=== PATIENT | female | born 1995 | race Two or more races ===

== ENCOUNTER 2019-10-09 09:30 | Inpatient (IN) | payer OTHER ==
[2019-10-09] MEDS ORDERED: AMPICILLIN SODIUM 2 GM VIAL ONE (10:57)
[2019-10-09] MEDS: DEXTROSE 5%-LACTATED RINGERS 1,000 ML IV SCH (11:00)
[2019-10-09 11:14] LABS: BASO % 0.4 % (0-2.0); EOS % 0.1 % (0-4.5); HEMATOCRIT 36.4 % (32.4-45.2); HEMOGLOBIN 12.1 GM/dL (10.7-15.3); LYMPH % 6.5 % (8-40); MCH 28.7 pg (25.7-33.7); MCHC 33.2 g/dl (32.0-36.0); MEAN CELL VOLUME 86.4 fl (80-96); MEAN PLT VOLUME 9.3 fl (7.5-11.1); PLATELET COUNT 306 K/MM3 (134-434); RBC 4.21 M/mm3 (3.60-5.2); RDW 14.7 % (11.6-15.6); WHITE BLOOD COUNT 15.9 K/mm3 (4.0-10.0)
[2019-10-09] MEDS ORDERED: OXYTOCIN 30 UNITS in 0.9% NS 30 UNIT/500 ML INFUS.BAG IVPB ONE (11:19)
--- NOTE | 2019-10-09 11:28 | HP ---
Past Medical History - Primary Care Physician PCP:: Israel Gupta - Admission Chief Complaint: 39 weeks , labor History of Present Illness: 24 yo f edc by sono 10/14/19 39 weeks, care at [place] [place] , no chart available , cx 2 cm 80 vx -2 mi, fhr cat1 , irregular contraction History Source: Patient Limitations to Obtaining History: No Limitations - Past Medical History Pulmonary: Yes: Asthma (no recent attack) ...: 1 ...EDC by Sono: 10/14/19 - Past Surgical History Hx Myomectomy: No Hx Transabdominal Cerclage: No - Smoking History Smoking history: Never smoked Have you smoked in the past 12 months: No - Alcohol/Substance Use Hx Alcohol Use: No - Social History History of Recent Travel: No Home Medications - Allergies Allergies/Adverse Reactions: Allergies Allergy/AdvReac Type Severity Reaction Status Date / Time No Known Allergies Allergy Verified 10/09/19 10:45 - Home Medications Home Medications: Ambulatory Orders Tablet 1 tablet PO DAILY 10/09/19 Review of Systems - Review of Systems Constitutional: reports: No Symptoms Eyes: reports: No Symptoms HENT: reports: No Symptoms Neck: reports: No Symptoms Cardiovascular: reports: No Symptoms Respiratory: reports: No Symptoms Gastrointestinal: reports: No Symptoms Genitourinary: reports: No Symptoms Breasts: reports: No Symptoms Reported Musculoskeletal: reports: No Symptoms Integumentary: reports: No Symptoms Neurological: reports: No Symptoms Endocrine: reports: No Symptoms Hematology/Lymphatic: reports: No Symptoms Psychiatric: reports: No Symptoms Physical Exam - Maternity Vital Signs: Vital Signs Temperature 98.5 F 10/09/19 10:34 Pulse Rate 89 10/09/19 11:00 Respiratory Rate 18 10/09/19 11:00 Blood Pressure 125/79 10/09/19 11:00 O2 Sat by Pulse Oximetry (%) Constitutional: Yes: Well Nourished, No Distress, Calm Eyes: Yes: WNL, Conjunctiva Clear, EOM Intact HENT: Yes: WNL, Atraumatic, Normocephalic Neck: Yes: WNL, Supple, Trachea Midline Cardiovascular: Yes: WNL, Regular Rate and Rhythm Breast(s): Yes: WNL - Abdominal Exam/OB Fundal Height: 38 Number of Fetuses: Single Presentation: Vertex Contractions: Yes Regularity: Irregular Intensity: Moderate Monitor Mode: External Heart Rate Location: [facility] Category: I Accelerations: Non-Uniform Decelerations: None - Vaginal Exam/OB Vaginal Bleediing: No Speculum Exam: No Dilatation (cm): 2 cm Effacement (%): 80 Amniotic Membrane Status: Intact Presentation: Vertex/Position Station: -2 - Physical Exam Musculoskeletal: Yes: WNL Extremities: Yes: WNL Edema: LLE: Trace, RLE: Trace Deep Tendon Reflex Grade: Normal +2 Psychiatric: Yes: WNL - Labs Lab Results: CBC, BMP 10/09/19 10:10 Hemorrhage Risk Assessment - Risk Factors Medium Risk Factors: Yes: None High Risk Factors: Yes: None Risk Score: 1 Risk Level: Medium Risk Problem List - Problems (1) with 39 completed weeks gestation Code(s): Z3A.39 - 39 WEEKS GESTATION OF (2) Labor established Code(s): EQS2425 - (3) with care elsewhere Code(s): Z34.90 - ENCNTR FOR SUPRVSN OF NORMAL , UNSP, UNSP TRIMESTER Qualifiers: Trimester: third trimester Qualified Code(s): Z34.93 - Encounter for supervision of normal , unspecified, third trimester Assessment/Plan admit, FHM pain management GBS unknown plan in Amp. try to obtain record
[2019-10-09 11:31] LABS: INR 1.04 (0.83-1.09); PROTHROMBIN TIME (PATIENT) 12.3 SEC (9.7-13.0)
[2019-10-09 11:34] LABS: ACTIVATED PTT 31.5 SECONDS (25.2-36.5)
[2019-10-09] MEDS ORDERED: AMPICILLIN - 2 GM in SODIUM CHLORIDE 100 ML IVPB ONE (11:34)
[2019-10-09 11:45] LABS: BLOOD UREA NITROGEN 10.3 mg/dL (7-18); CALCIUM 8.9 mg/dL (8.5-10.1); CREATININE 0.8 mg/dL (0.55-1.3); POTASSIUM 4.1 mmol/L (3.5-5.1)
[2019-10-09] MEDS ORDERED: BUTORPHANOL TARTRATE 1 MG/ML VIAL IVPUSH PRN (12:03)
[2019-10-09] MEDS ORDERED: PROMETHAZINE HCL 25 MG/1 ML VIAL IVPUSH ONE (12:03)
[2019-10-09 12:40] LABS: COCAINE, UR NEGATIVE ng/ml (CUTOFF=300); METHADONE, UR NEGATIVE ng/ml (CUTOFF=300); OPIATES, URI NEGATIVE ng/ml (CUTOFF=300); PHENCYCLIDINE,URINE NEGATIVE ng/ml (CUTOFF=25); URINE AMPHETAMINES NEGATIVE ng/ml (CUTOFF=500); URINE BARBITURATES NEGATIVE ng/ml (CUTOFF=200); URINE BENZODIAZEPINES NEGATIVE ng/ml (CUTOFF=200)
[2019-10-09] MEDS: AMPICILLIN - 1 GM in SODIUM CHLORIDE 100 ML IVPB SCH ×3 (15:00→23:00)
[2019-10-09] MEDS ORDERED: AMPICILLIN SODIUM 1 GM VIAL ONE ×2 (15:27→23:16)
[2019-10-09] MEDS: OXYTOCIN 30 UNITS in 0.9% NS 30 UNIT/500 ML INFUS.BAG IVPB SCH (17:00)
[2019-10-09] MEDS ORDERED: BUTORPHANOL TARTRATE 1 MG/ML VIAL ONE ×2 (18:30)
[2019-10-09] MEDS ORDERED: PROMETHAZINE HCL 25 MG/1 ML VIAL ONE (18:30)
[2019-10-10] MEDS ORDERED: FENTANYL/BUPIVACAINE/NS/PF - PCEA - 50 ML DISP.SYRIN EP ONE (00:09)
[2019-10-10] MEDS ORDERED: NALOXONE HCL 0.4 MG/ML VIAL IVPUSH PRN (00:12)
[2019-10-10] MEDS: FENTANYL/BUPIVACAINE/NS/PF - PCEA - 50 ML DISP.SYRIN EP SCH (00:25)
[2019-10-10] MEDS: AMPICILLIN - 1 GM in SODIUM CHLORIDE 100 ML IVPB SCH ×2 (03:00→09:22)
[2019-10-10] MEDS ORDERED: OXYTOCIN 20 UNITS in 0.9% NS 20 UNIT/1,000 ML INFUS.BAG IV ONE (03:54)
[2019-10-10] MEDS ORDERED: AMPICILLIN SODIUM 1 GM VIAL ONE (04:04)
[2019-10-10] MEDS ORDERED: BENZOCAINE 28 GM HEMORRHOIDAL OINTMENT TP PRN (04:47)
[2019-10-10] MEDS ORDERED: BENZOCAINE 20% 57 GM BOTTLE TP PRN (04:47)
[2019-10-10] MEDS ORDERED: METHYLERGONOVINE MALEATE 0.2 MG/1 ML AMP IM PRN (04:47)
[2019-10-10] MEDS ORDERED: WITCH HAZEL 50% (TUCKS) 40 PAD/JAR PAD TP PRN (04:47)
[2019-10-10] MEDS ORDERED: BISACODYL 10 MG SUPP.RECT RC PRN (04:47)
--- NOTE | 2019-10-10 04:52 | PN ---
Delivery - Delivery Vaginal Delivery: Spontaneous Type of Anesthesia: Local, Epidural Episiotomy/Laceration: Periurethral Extnsion/lac (cx full, head on pernium, head delivered , naso pharynx suctioned , ant .and post. shoulder with no difficulty , live baby boy 9/9 . placenta complete . Rt periurethral laceration repaired with 2 two chromic interrupted suture , ebl 300 cc , no complication, baby bonded with mom) Delivery, Single - [place] Feeding Plan Initial Plan: Elected not to breastfeed exclusively throughout hospitalization
[2019-10-10] MEDS ORDERED: D5W-LR W/ 20 UNITS OXYTOCIN 20 UNIT/1,000 ML INFUS.BAG IV SCH (05:00)
[2019-10-10] MEDS ORDERED: ACETAMINOPHEN 325 MG TABLET (FP) ONE (09:34)
[2019-10-10] MEDS: ACETAMINOPHEN 325 MG TABLET (FP) PO PRN ×2 (09:55→22:18)
[2019-10-10] MEDS: PRENATAL VITAMINS W/ FOLIC ACID TABLET (FP) PO SCH (09:55)
[2019-10-10] MEDS: FERROUS SO4 325 MG TABLET (FP) PO SCH ×2 (09:55→22:17)
[2019-10-10] MEDS: OXYTOCIN 30 UNITS in 0.9% NS 30 UNIT/500 ML INFUS.BAG IVPB SCH (20:16)
[2019-10-10] MEDS: DEXTROSE 5%-LACTATED RINGERS 1,000 ML IV SCH (20:16)
[2019-10-10] MEDS: IBUPROFEN 600 MG TABLET (FP) PO PRN (22:17)
[2019-10-11] MEDS: FENTANYL/BUPIVACAINE/NS/PF - PCEA - 50 ML DISP.SYRIN EP SCH (04:43)
[2019-10-11 08:18] LABS: BASO % 0.2 % (0-2.0); EOS % 0.7 % (0-4.5); HEMATOCRIT 31.7 % (32.4-45.2); HEMOGLOBIN 10.5 GM/dL (10.7-15.3); LYMPH % 11.9 % (8-40); MCHC 33.2 g/dl (32.0-36.0); MEAN CELL VOLUME 87.4 fl (80-96); MEAN PLT VOLUME 8.9 fl (7.5-11.1); MONO % 5.7 % (3.8-10.2); NEUT % 81.5 % (42.8-82.8); PLATELET COUNT 248 K/MM3 (134-434); RBC 3.63 M/mm3 (3.60-5.2); RDW 14.8 % (11.6-15.6); WHITE BLOOD COUNT 11.8 K/mm3 (4.0-10.0)
[2019-10-11] MEDS: PRENATAL VITAMINS W/ FOLIC ACID TABLET (FP) PO SCH (10:35)
[2019-10-11] MEDS: FERROUS SO4 325 MG TABLET (FP) PO SCH ×2 (10:35→22:06)
[2019-10-11] MEDS: ACETAMINOPHEN 325 MG TABLET (FP) PO PRN (19:54)
[2019-10-11] MEDS ORDERED: SENNOSIDES/DOCUSATE COMBO (SENNA PLUS) TABLET (UD) PO PRN (22:00)
[2019-10-12] MEDS: ACETAMINOPHEN 325 MG TABLET (FP) PO PRN (03:21)
[2019-10-12] MEDS: IBUPROFEN 600 MG TABLET (FP) PO PRN ×2 (08:08→17:00)
[2019-10-12] MEDS: FERROUS SO4 325 MG TABLET (FP) PO SCH (09:28)
[2019-10-12] MEDS: PRENATAL VITAMINS W/ FOLIC ACID TABLET (FP) PO SCH (09:28)
[2019-10-12 11:00] VITALS: BP 124/61; PULSE 67; TEMP 98.6
--- NOTE | 2019-10-12 11:13 | DS ---
Physical Exam-BREAD P[employer]ER Vital Signs: Vital Signs Temperature 98.6 F 10/12/19 10:00 Pulse Rate 67 10/12/19 10:00 Respiratory Rate 20 10/12/19 10:00 Blood Pressure 124/61 10/12/19 10:00 O2 Sat by Pulse Oximetry (%) 100 10/10/19 04:15 Constitutional: Yes: Well Nourished, Obese Eyes: Yes: WNL HENT: Yes: WNL Neck: Yes: WNL Respiratory: Yes: WNL Gastrointestinal: Yes: WNL ....Post : Yes: Uterus firm, Moderate lochia rubra (perineum healing, perineum) Edema: LLE: 1+, RLE: 1+ Integumentary: Yes: Tattoos Psychiatric: Yes: WNL, Alert, Oriented Labs: CBC, BMP 10/11/19 07:30 10/09/19 10:10 Delivery - Delivery Vaginal Delivery: Spontaneous Type of Anesthesia: Local, Epidural Episiotomy/Laceration: Periurethral Extnsion/lac EBL (cc): 300 Delivery, Single - Stages of Labor Date 1st Stage Initiatied: 10/09/19 Time 1st Stage Initiated: 09:45 Date 2nd Stage Initiated: 10/10/19 Time 2nd Stage Initiated: 03:30 Date of Delivery: 10/10/19 Time of Delivery: 04:27 Time Placenta Delivered: 04:30 - Condition of Infant Sr. Vendor Management Associate/Currency Examiner Present: No Gender: Male Weight: 6 lb 5 oz Position: Left, OA Total Hours ROM (Hrs/Mins): 1H27M - 1 Minute Total Score: 9 5 Minutes Total Score: 9 - [place] Feeding Plan Initial Plan: Elected not to breastfeed exclusively throughout hospitalization Remarks - Remarks Remarks: pp course uneventful discharge today Discharge Summary Problems reviewed: Yes Reason For Visit: ADMISSSION OF LABOR Current Active Problems Labor established (Acute) with 39 completed weeks gestation (Acute) with care elsewhere (Acute) Condition: Stable - Instructions Diet, Activity, Other Instructions: return to clinic in 4-6 weeks for check. call [facility] for appointment. [phone] Referrals: Israel Gupta MD [Staff Physician] - Disposition: HOME - Home Medications Comprehensive Discharge Medication List: Ambulatory Orders Tablet 1 tablet PO DAILY 10/09/19 Prescription Drug Monitoring Program (I-STOP) results: I-STOP reviewed and no issues identified
== END 2019-10-12 17:48 | disposition home or self-care (01) | DRG 560 ==
LOC: JLDR 09:30 → J3W 10-10 12:27
PROVIDERS: ADMIT Obstetrics & Gynecology; ATTEND Obstetrics & Gynecology
PROC: 10E0XZZ Delivery of Products of Conception, External Approach (ICD-10-PCS; principal; 2019-10-10)
PROC: 0UQMXZZ Repair Vulva, External Approach (ICD-10-PCS; 2019-10-10)
PROC: 0W8NXZZ Division of Female Perineum, External Approach (ICD-10-PCS; 2019-10-10)
DX: O71.82 Other specified trauma to perineum and vulva (principal); O99.213 Obesity complicating pregnancy, third trimester; Z3A.39 39 weeks gestation of pregnancy; Z37.0 Single live birth
CPT/HCPCS: 36415; 36600; 59409; 80048; 80307; 82803; 85025; 85610; 85730; 86593; 86850; 86900; 86901; 87340; 87389